=== PATIENT | female | born 1985 | race Caucasian/White ===

== ENCOUNTER 2018-06-11 14:01 | Emergency (ER) | payer OTHER ==
[2018-06-11 14:09] VITALS: BP 129/85
[2018-06-11] MEDS ORDERED: TETANUS/DIPHTHERIA/PERTUSSIS 0.5 ML SYRINGE IM ONE (14:44)
--- NOTE | 2018-06-11 14:46 | ED Physician Documentation ---
PD HPI LOWER EXT INJURY - Stated complaint Stated Complaint: R LEG INJ - Chief complaint Chief Complaint: Ext Problem - History obtained from History obtained from: Patient - History of Present Illness PD HPI LOW EXT INJURY LOCATION: Other (She fell 3 days ago while skating at a skate park and scraped her right thigh and has a large area of swelling and moderate pain there although declines prescription pain medication and reinjured in another fall today. 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 : None HEENT: Chronic vision loss Psych: Depression Musculoskeletal: None Derm: None - Past Surgical History Past Surgical History: No - Present Medications Home Medications: Ambulatory Orders Medication Instructions Recorded Confirmed No Known Home Medications [No 06/08/17 06/08/17 Known Home Medications] - Allergies Allergies/Adverse Reactions: Allergies Allergy/AdvReac Type Severity Reaction Status Date / Time iron dextran complex Allergy breathing Verified 06/11/18 14:09 difficulty - Social History Does the pt smoke?: No Smoking Status: Never smoker Does the pt drink ETOH?: Yes Does the pt have substance abuse?: No Substance Use and Type: Marijuana - Immunizations Immunizations are current?: Yes - POLST Patient has POLST: No PD ED PE NORMAL - Vitals Vital signs reviewed: Yes - General General: Alert and oriented X 3, No acute distress - Neck Neck: Supple, no meningeal sign, No bony TTP - Neuro Neuro: Alert and oriented X 3, Normal speech - Psych Psych: Normal mood, Normal affect PD ED PE EXPANDED - Extremities JUANITA LE visual: 1 - bruising (There is a large swollen contusion with overlying shallow abrasion and ecchymosis. There is tenderness but not above or below the injury and she walks albeit with fairly limping gait.) Results - Vitals Vitals: Vital Signs - 24 hr 06/11/18 14:06 Temperature 36.5 C Heart Rate 81 Respiratory 16 Rate Blood Pressure 129/85 H O2 Saturation 99 Oxygen O2 Source Room air - Rads (name of study) R femur XR Radiology: EMP read contemporaneously (STS no frx) PD MEDICAL DECISION MAKING - Sepsis Event Vital Signs: Vital Signs - 24 hr 06/11/18 14:06 Temperature 36.5 C Heart Rate 81 Respiratory 16 Rate Blood Pressure 129/85 H O2 Saturation 99 Oxygen O2 Source Room air Departure - Departure Disposition: 01 Home, Self Care Clinical Impression: Contusion of right leg Qualifiers: Encounter type: initial encounter Qualified Code(s): S80.11XA - Contusion of right lower leg, initial encounter Abrasion of right leg Qualifiers: Encounter type: initial encounter Qualified Code(s): S80.811A - Abrasion, right lower leg, initial encounter Condition: Good Record reviewed to determine appropriate education?: Yes Instructions: ED Abrasion, ED Contusion Lower Ext Comments: Your blood pressure was elevated today on check into the emergency department. This does not mean that you have hypertension, it is a common phenomenon to come to the emergency department and have elevated blood pressure. I recommend that you see your primary care physician within the week to have it rechecked when you are feeling better. Discharge Date/Time: 06/11/18 15:14
--- NOTE | 2018-06-11 15:18 | XRAY Report ---
Reason: RLE inj Procedure Date: 06/11/2018 Accession Number: [id number] / [id number] Procedure: XR - Femur 2V RT CPT Code: FULL RESULT: EXAM: RIGHT FEMUR RADIOGRAPHY EXAM DATE: 06/11/2018 02:59 PM. CLINICAL HISTORY: Right hip/proximal femur pain and swelling after falling while roller skating twice in 2 days. COMPARISON: None. TECHNIQUE: 2 views. FINDINGS: Bones: Normal. No fracture or bone lesion. Joints: The visualized hip and knee joints are normal. No effusions. Soft Tissues: There is fat stranding in the subcutaneous tissue lateral to the hip and proximal femur. IMPRESSION: 1. No acute osseous abnormality. 2. Edema or contusion in the subcutaneous fat lateral to the right hip and proximal femur. RADIA
== END 2018-06-11 15:14 | disposition home or self-care (01) ==
LOC: ED 14:01
DX: S80.11XA Contusion of right lower leg, initial encounter (principal); W10.2XXA Fall (on)(from) incline, initial encounter; V00.128A Other non-in-line roller-skating accident, initial encounter; Y93.69 Activity, other involving other sports and athletics played as a team or group; Y92.830 Public park as the place of occurrence of the external cause; R03.0 Elevated blood-pressure reading, without diagnosis of hypertension
CPT/HCPCS: 90471; 99282; 99283

== ENCOUNTER 2019-08-25 18:47 | Emergency (ER) | payer OTHER ==
[2019-08-25] MEDS ORDERED: KETOROLAC 60 MG/2 ML VIAL IM STA (20:11)
--- NOTE | 2019-08-25 20:13 | ED Physician Documentation ---
PD HPI BACK PAIN - Stated complaint Stated Complaint: RT UPPER BACK PX - Chief complaint Chief Complaint: Back Pain - History obtained from History obtained from: Patient - History of Present Illness Timing - onset: Other (Participates in [employer]. About a week ago she had several falls of practice. No specific pain then but woke up with severe left upper back pain the next day. She was seen in the clinic and given Toradol, this was helpful, and given a prescription for muscle relaxer and pain medication, she did not fill either. The pain is still there. There is no associated chest pain or trouble breathing. No fevers. Does not radiate except uppercase the neck a little bit. 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 : None HEENT: Chronic vision loss Psych: Depression Musculoskeletal: None Derm: None - Past Surgical History Past Surgical History: No - Present Medications Home Medications: Ambulatory Orders Medication Instructions Recorded Confirmed Cyclobenzaprine [Flexeril] 10 mg PO TID PRN #20 tablet 08/25/19 Hydrocodone/Acetaminophen 1 - 2 each PO Q6H PRN #14 tablet 08/25/19 [Hydrocodon-Acetaminophen 5-325] Ibuprofen [Motrin] 800 mg PO Q8H PRN #30 tablet 08/25/19 Lidocaine Patch 5% [Lidoderm Patch] 1 patch TOP DAILY PRN #10 patch 08/25/19 Physical Therapy 1 unit TD ONCE #1 08/25/19 - Allergies Allergies/Adverse Reactions: Allergies Allergy/AdvReac Type Severity Reaction Status Date / Time iron dextran complex Allergy breathing Verified 08/25/19 18:54 difficulty - Social History Does the pt smoke?: No Smoking Status: Never smoker Does the pt drink ETOH?: Yes Does the pt have substance abuse?: No - Immunizations Immunizations are current?: Yes - POLST Patient has POLST: No PD ED PE NORMAL - Vitals Vital signs reviewed: Yes - General General: Alert and oriented X 3, No acute distress - HEENT HEENT: PERRL, EOMI - Neck Neck: Supple, no meningeal sign, No bony TTP - Cardiac Cardiac: RRR, No murmur - Respiratory Respiratory: No respiratory distress, Clear bilaterally - Abdomen Abdomen: Non tender - Extremities Extremities: Other (Tender in the midline of the mid thoracic spine, hurts to move the right arm across the chest. Lungs are clear.) - Neuro Neuro: Alert and oriented X 3, Normal speech Results - Vitals Vitals: Vital Signs - 24 hr 08/25/19 08/25/19 18:52 21:59 Temperature 36.4 C L 36.9 C Heart Rate 90 67 Respiratory 16 18 Rate Blood Pressure 133/80 H 125/85 H O2 Saturation 100 100 Oxygen O2 Source Room air - Rads (name of study) T spine XR Radiology: EMP read contemporaneously (normal) PD MEDICAL DECISION MAKING - ED course ED course: 34-year-old woman with upper back pain, seems like muscle spasm. Given the association with trauma and x-ray was done and negative. Got some relief with Toradol but needed more meds as well. The patient was counseled as to the diagnosis and need for follow-up. I counseled the patient with regard to signs and symptoms that would necessitate an urgent reevaluation in the emergency department. They understand they are welcome to return at any time if worse or if not improving as expected. This document was made in part using voice recognition software. While efforts are made to proofread this documents, sound alike and grammatical errors may occur. Departure - Departure Disposition: 01 Home, Self Care Clinical Impression: Back spasm Condition: Good Record reviewed to determine appropriate education?: Yes Instructions: ED Spasm Back No Trauma Prescriptions: Cyclobenzaprine [Flexeril] 10 mg PO TID PRN #20 tablet PRN Reason: Spasms Hydrocodone/Acetaminophen [Hydrocodon-Acetaminophen 5-325] 1 - 2 each PO Q6H PRN #14 tablet PRN Reason: pain Ibuprofen [Motrin] 800 mg PO Q8H PRN #30 tablet PRN Reason: PAIN &/OR FEVER Lidocaine Patch 5% [Lidoderm Patch] 1 patch TOP DAILY PRN #10 patch PRN Reason: pain Physical Therapy 1 unit TD ONCE #1 Comments: Call your doctor to arrange a follow-up appointment, make the next available appointment. In the interim, return anytime if worse or if new symptoms develop. Do not drink or drive while taking narcotic pain medication. Note that many narcotic pain relievers also contain Tylenol/acetaminophen. Please ensure that your total dose of acetaminophen from all sources does not exceed 3 g (3000 mg) per day. You may get constipated while on this medication. Take a stool softener such as Colace twice a day while you are on it. Also add an duty-[id number]-ewgcryb laxative such as senna or MiraLAX on any day that you do not have a bowel movement. If you received a narcotic pain medication or sedative while in the emergency department, do not drive for the next 24 hours. Discharge Date/Time: 08/25/19 22:10
[2019-08-25] MEDS ORDERED: HYDROcod/ACETAM 5/325 MG TABLET PO STA (21:28)
[2019-08-25] MEDS ORDERED: CYCLOBENZAPRINE 10 MG TABLET PO STA (21:28)
[2019-08-25] MEDS ORDERED: HYDROcod/ACET 5/325 Prepack 4 PO STA (21:53)
[2019-08-25] MEDS ORDERED: LIDOCAINE PATCH 5% TOP STA (21:53)
[2019-08-25 22:00] VITALS: BP 125/85
--- NOTE | 2019-08-25 22:06 | XRAY Report ---
Reason: upper back pain Procedure Date: 08/25/2019 Accession Number: [id number] / [id number] Procedure: XR - Thoracic Spine 2 View CPT Code: Final Report FULL RESULT: EXAM: THORACIC SPINE RADIOGRAPHY EXAM DATE: 08/25/2019 09:43 PM. CLINICAL HISTORY: Upper back pain. COMPARISON: None. TECHNIQUE: 3 views. FINDINGS: Alignment: Normal. No spondylolisthesis or scoliosis. Bones: No fractures or bone lesions. Disks: Normal. Disk heights are maintained. Soft Tissues: Normal. The visualized lungs and cardiomediastinal silhouette are normal. IMPRESSION: Normal thoracic spine radiography. RADIA
== END 2019-08-25 22:10 | disposition home or self-care (01) ==
LOC: ED 18:47
DX: M62.830 Muscle spasm of back (principal); M54.6 Pain in thoracic spine; Z91.81 History of falling
CPT/HCPCS: 72070; 96372; 99283; 99284; A9270

== ENCOUNTER 2020-10-06 07:52 | Day surgery (SDC) | payer OTHER ==
[~2020-10-06 07:52] MED LIST: ACETAMINOPHEN 1,000 MG/100 ML 0 ML IV ONE; ACETAMINOPHEN 1,000 MG/100 ML 100 ML IV ONE
[2020-10-06] MEDS ORDERED: LACTATED RINGERS 1,000 ML IV ONE ×2 (08:14→09:53)
[2020-10-06] MEDS ORDERED: DEXAMETHASONE 4 MG/ML VIAL ONE (08:18)
[2020-10-06] MEDS ORDERED: KETOROLAC 30 MG/ML VIAL ONE (08:18)
[2020-10-06] MEDS ORDERED: ONDANSETRON 4 MG/2 ML VIAL ONE ×2 (08:18→10:10)
[2020-10-06] MEDS ORDERED: PROPOFOL 200 MG/20 ML VIAL IVP ONE (08:18)
[2020-10-06] MEDS ORDERED: LIDOCAINE-MPF 2% 5 ML VIAL ONE (08:18)
[2020-10-06 08:30] LABS: HCG UR QUAL NEGATIVE
[2020-10-06] MEDS ORDERED: LIDOCAINE 2%-EPI 1:100000 20 ML MDV ONE (08:47)
--- NOTE | 2020-10-06 08:50 | ANESTHESIA ---
Pre-Anesthesia VS, & Labs - Diagnosis menorrhagea - Procedure novasure/ablation Vital Signs: Temp Pulse Resp BP Pulse Ox 36.6 C 78 16 117/86 H 100 10/06/20 08:09 10/06/20 08:09 10/06/20 08:09 10/06/20 08:09 10/06/20 08:09 Height: 5 ft Weight (kg): 75.5 kg Body Mass Index: 32.5 BMI Classification: Obese - NPO >8 hours - Is Patient ?: No Home Medications and Allergies Home Medications: Ambulatory Orders diphenhydrAMINE [Benadryl] 25 mg PO Q4-6H 09/30/20 diphenhydrAMINE [Benadryl] 25 mg PO Q4-6H 09/30/20 Allergies/Adverse Reactions: Allergies Allergy/AdvReac Type Severity Reaction Status Date / Time iron dextran complex Allergy breathing Verified 09/30/20 12:45 difficulty nickel Allergy Rash Verified 09/30/20 12:45 Anes History & Medical History - Anesthetic History Anesthesia Complications: reports: No previous complications Family history of Anesthesia Complications: Denies Family history of Malignant Hyperthermia: Denies - Medical History Cardiovascular: reports: None Pulmonary: reports: None Gastrointestinal: reports: None Urinary: reports: None Neuro: reports: None Musculoskeletal: reports: None Endocrine/Autoimmune: reports: None Blood Disorders: reports: Anemia Skin: reports: None Smoking Status: Never smoker - Surgical History Gynecologic: Dilation and currettage Exam General: Alert, Oriented x3, Cooperative, No acute distress Dental: WNL Mouth Openin Fingerbreadth Mallampati classification: II Thyromental Distance: 4-6 cm Respiratory: Lungs clear, Normal breath sounds, No respiratory distress, No accessory muscle use Cardiovascular: Regular rate, Normal S1, Normal S2, No murmurs Mental/Cognitive Status: Alert/Oriented X3, Normal for patient Cognitive Status: Within normal limits Plan Anesthesia Type: General Consent for Procedure(s) Verified and Reviewed: Yes Code Status: Attempt Resuscitation ASA classification: 2-Mild systemic disease Is this case an emergency?: No
[2020-10-06] MEDS ORDERED: LIDOCAINE 1%-EPI 1:100000 20 ML MDV SUBQ ONE ×2 (08:52→09:26)
[2020-10-06] MEDS ORDERED: fentaNYL 100 MCG/2 ML VIAL ONE (09:00)
[2020-10-06] MEDS ORDERED: MIDAZOLAM 2 MG/2 ML VIAL ONE (09:00)
--- NOTE | 2020-10-06 09:07 | OPERATIVE REPORT ---
Operative Report - General Planned Procedure: Diagnostic hysteroscopy, dilation and curettage, endometrial ablation Pre-Op Diagnosis: Heavy menstrual bleeding Procedure Performed: Diagnostic hysteroscopy, Dilation and curettage, Novasure endometrial ablation Post Op Diagnosis: Heavy menstrual bleeding - Procedure Note Primary Surgeon: Luly Anesthesia Provider: Kellen Anesthesia Technique: General LMA, Local Pathology: Endometrial curettings IV Fluids (mL): 400 (Lactated Ringers) Estimated Blood Loss (mL): 5 Urine Output (mL): 150 Indications: 35 year old female using 's vasectomy for contraception, with heavy menstrual bleeding leading to anemia requiring IV iron infusions. She declined hormonal contraceptive medication or other medical therapy for management, and desired surgical management with endometrial ablation. The patient was counseled and consented for the procedure. Findings: Exam under anesthesia: Uterus approximately 10 week sized, normal contour. No adnexal masses. Hysteroscopy: Uterus sounded to 10cm, uterine length 6cm, uterine width 5cm. Uterine cavity with polypoid tissue limiting visualization of right tubal ostium. Left ostium normal. Sharp curettage performed to remove polypoid endometrium, followed by repeat hysteroscopy which showed normal right tubal ostium. Post-ablation hysteroscopy with charring with spared thin band at fundus and sparing at 0300 to 0600 of lower uterine segment endometrium. Total ablation time: 0:53, power 165 barrett Complications: None - Other Other Information/Narrative: OPERATIVE NOTE: The patient was counseled and consented for the procedure. She was taken to the operating room where general LMA anesthesia was obtained without complication. A surgical time-out was performed. The patient was prepped and draped in the usual sterile fashion in yellow-fin stirrups. The bladder was drained with a straight catheter. A bivalve speculum was placed in the vagina. The anterior lip of the cervix was grasped with a single toothed tenaculum. A local paracervical block using 10ml of 2 % lidocaine with epinephrine was placed at 2, 4, 8, and 10 o'clock positions of the cervix. The uterus was sounded to 10cm. The cervix was dilated to #8 Sindy dilator. The diagnostic hysteroscope was inserted and the uterine cavity was noted to have polypoid tissue limiting visualization of right tubal ostium, normal left tubal ostium. The hysteroscope was removed and sharp curettage was performed with a medium sized curette, and the tissue sent for pathology. Repeat hysteroscopy after curettage with visualized normal right tubal ostium. The cervix and uterine measurements were obtained. The Novasure device was inserted and the uterine width was obtained using automobile sales representative recommended maneuvers. Endometrial ablation was performed without complication. The Novasure device was removed and the diagnostic hysteroscope was inserted, notable for charring with spared thin band at fundus and spared charring at 0300 to 0600 of lower uterine segment endometrium. The hysteroscope was removed. The tenaculum was removed from the cervix and the tenaculum sites were hemostatic with pressure. The speculum was removed from the vagina. All instruments were removed from the vagina. The patient tolerated the procedure well. She was awakened from anesthesia without complication and transferred to PACU in stable condition.
[2020-10-06] MEDS ORDERED: METOCLOPRAMIDE 10 MG/2 ML VIAL IVP PRN (09:14)
[2020-10-06] MEDS ORDERED: ONDANSETRON 4 MG/2 ML VIAL IVP PRN ×2 (09:14→10:10)
[2020-10-06] MEDS ORDERED: MORPHINE 2 MG/ML CARPUJECT IVP PRN (09:14)
[2020-10-06] MEDS ORDERED: fentaNYL 100 MCG/2 ML VIAL IVP PRN (09:14)
[2020-10-06] MEDS ORDERED: ATROPINE ABBOJECT 1 MG/10 ML SYRINGE IVP PRN (09:14)
[2020-10-06] MEDS ORDERED: HYDROmorphone 0.5 MG/0.5 ML SYRINGE IVP PRN (09:14)
[2020-10-06] MEDS ORDERED: ePHEDrine 50 MG/ML VIAL IVP PRN (09:14)
[2020-10-06] MEDS ORDERED: NALOXONE 0.4 MG/ML VIAL IVP PRN (09:14)
[2020-10-06] MEDS ORDERED: LACTATED RINGERS 1,000 ML IV SCH (10:00)
[2020-10-06] MEDS ORDERED: MORPHINE 10 MG/ML VIAL IVP STA (10:10)
[2020-10-06] MEDS ORDERED: oxyCODONE 5 MG TABLET PO PRN (10:10)
[2020-10-06] MEDS ORDERED: diphenhydrAMINE 25 MG CAPSULE PO PRN (10:10)
[2020-10-06] MEDS ORDERED: HYDROmorphone 0.5 MG/0.5 ML SYRINGE ONE (10:11)
[2020-10-06] MEDS ORDERED: oxyCODONE 5 MG TABLET ONE (10:47)
[2020-10-06 11:12] VITALS: BP 120/73
--- NOTE | 2020-10-06 14:18 | ANESTHESIA POST OP EVALUATION ---
Anesthesia Post Eval - Post Anesthesia Eval Vitals: Last Vital Signs Temp 36.3 C L 10/06/20 11:11 Pulse 79 10/06/20 11:11 Resp 16 10/06/20 11:11 BP 120/73 10/06/20 11:11 Pulse Ox 98 10/06/20 11:11 CV Function Including HR & BP: positive: Stable Pain Control: positive: Satisfactory Nausea & Vomiting: positive: Negative Mental Status: positive: Baseline Respiratory Status: Airway Patent Hydration Status: Satisfactory Anesthesia Complications: positive: None
== END 2020-10-06 07:53 | disposition home or self-care (01) ==
LOC: SDS 07:52
PROVIDERS: ATTEND Obstetrics & Gynecology
PROC: 0UDB7ZX Extraction of Endometrium, Via Natural or Artificial Opening, Diagnostic (ICD-10-PCS; 2020-10-06)
PROC: 0U5B8ZZ Destruction of Endometrium, Via Natural or Artificial Opening Endoscopic (ICD-10-PCS; principal; 2020-10-06 09:00)
DX: N92.0 Excessive and frequent menstruation with regular cycle (principal); D64.9 Anemia, unspecified; F32.9 Major depressive disorder, single episode, unspecified; E66.9 Obesity, unspecified; Z68.32 Body mass index [BMI] 32.0-32.9, adult; Z72.89 Other problems related to lifestyle
CPT/HCPCS: 81025

== ENCOUNTER 2020-12-21 22:47 | Emergency (ER) | payer OTHER ==
[2020-12-21] MEDS ORDERED: HYDROCORTISONE 1% OINTMENT 28 GM TUBE TOP STA (23:25)
--- NOTE | 2020-12-21 23:28 | ED Physician Documentation ---
History of Present Illness - Stated complaint Stated Complaint: L LEG REDNESS - Chief complaint Chief Complaint: Ext Problem - History obtained from History obtained from: Patient - Additonal information Additional information: 35-year-old woman with history of factor VIII elevation and bleeding anemia presents with left distal inner leg swelling, erythema, and constant stinging nonradiating pain gradual in onset over the past hour or so. Patient came in because she called an MD hotline and was told to come in to rule out blood clots. She has never had DVT in the past. Denies injury. She did hike in the [employer] yesterday and is unsure whether she was bit by anything or had any plant allergen exposure. Review of Systems Constitutional: denies: Fever Musculoskeletal: reports: Extremity swelling, Other (BL calf pain) Neurologic: reports: Other (+tingling pain). 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: Dilation and currettage - Present Medications Home Medications: Ambulatory Orders Medication Instructions Recorded Confirmed Ibuprofen [Motrin] 800 mg PO Q8H PRN #30 tablet 08/25/19 - Allergies Allergies/Adverse Reactions: Allergies Allergy/AdvReac Type Severity Reaction Status Date / Time iron dextran complex Allergy breathing Verified 12/21/20 22:59 difficulty nickel Allergy Rash Verified 12/21/20 22:59 - Social History Does the pt smoke?: No Smoking Status: Never smoker Does the pt drink ETOH?: Yes Does the pt have substance abuse?: No - Immunizations Immunizations are current?: Yes - POLST Patient has POLST: No PD ED PE NORMAL - Vitals Vital signs reviewed: Yes - General General: Alert and oriented X 3, No acute distress, Well developed/nourished - HEENT HEENT: Atraumatic, PERRL, EOMI - Extremities Extremities: No calf tenderness / cord, Other (2+ BL DP/PT pulses. irregular area of erythema to L lower calf just proximal to ankle without notable swelling. discomfort to palpation.) Results - Vitals Vitals: Vital Signs - 24 hr 12/21/20 12/21/20 22:49 23:06 Temperature 36.6 C 36.6 C Heart Rate 69 69 Respiratory 18 18 Rate Blood Pressure 130/92 H 130/92 H O2 Saturation 99 99 Oxygen O2 Source Room air PD MEDICAL DECISION MAKING - ED course ED course: 35yF with hx clotting disorder p/w L calf erythema and swelling, found to be negative for dvt on u/s. She did go hiking yesterday and I have a higher suspicion for a mild contact dermatitis however strict return precautions were given and pt was counseled to f/u with her primary doctor for possible repeat u/s in 2 weeks if she does not have resolution. Departure - Departure Disposition: 01 Home, Self Care Clinical Impression: Pain in extremity, Redness of skin Condition: Good Instructions: Contact Dermatitis Comments: You were seen for some redness and swelling on your left leg. It looks like this is likely a contact dermatitis type can be treated with [id number]-[id number] hydrocortisone. Your ultrasound study was negative for DVT, meaning that you do not appear to have a blood clot in your leg. A repeat ultrasound should be performed in 2 weeks if your doctor has a high suspicion for blood clots and if your symptoms have not resolved at that time. Return to the emergency department if you have any new or worsening symptoms or other concerns. Follow- up with your doctor this week.
[2020-12-21] MEDS ORDERED: HYDROCORTISONE 1% OINTMENT 28 GM TUBE TOP ONE (23:45)
[2020-12-21] MEDS ORDERED: HYDROCORTISONE 1% OINTMENT 28 GM TUBE TOP SCH (23:45)
[2020-12-21] MEDS ORDERED: HYDROCORTISONE 1% CREAM 28 GM TUBE TOP STA (23:46)
[2020-12-21] MEDS ORDERED: HYDROCORTISONE 1% CREAM 28 GM TUBE ONE (23:54)
[2020-12-22 00:26] VITALS: BP 118/74
--- NOTE | 2020-12-22 08:56 | Ultrasound Report ---
PROCEDURE: Duplex Ext Veins Left INDICATIONS: hx clotting disorder, with L leg swelling, redness TECHNIQUE: Real-time imaging, as well as color and pulse Doppler interrogation, were performed of the lower extr emity deep veins from the inguinal ligament to the popliteal fossa. COMPARISON: None. FINDINGS: The deep veins are normally compressible, and free of intraluminal thrombus. Color and pu lse Doppler demonstrate normal phasic intraluminal flow. There is normal augmentation response to di stal compression maneuver. IMPRESSION: No evidence of deep vein thrombosis involving the right lower extremity. Reviewed by: Gwendolyn Sloan MD, PhD on 12/22/2020 8:54 AM PDT Approved by: Gwendolyn Sloan MD, PhD on 12/22/2020 8:54 AM PDT Station ID: [id number]
== END 2020-12-22 00:25 | disposition home or self-care (01) ==
LOC: ED 22:47
DX: L53.9 Erythematous condition, unspecified (principal); M79.662 Pain in left lower leg; D68.2 Hereditary deficiency of other clotting factors; D50.0 Iron deficiency anemia secondary to blood loss (chronic)
CPT/HCPCS: 93971; 99283; 99284; A9270

== ENCOUNTER 2021-08-09 09:07 | Emergency (ER) | payer OTHER ==
[2021-08-09 09:18] VITALS: BP 128/74
[2021-08-09] MEDS ORDERED: LIDOCAINE VISCOUS 2% 15 ML UDC MM STA (09:45)
[2021-08-09] MEDS ORDERED: SUCRALFATE 1 GM/10 ML UDC PO STA (09:45)
--- NOTE | 2021-08-09 09:47 | ED Physician Documentation ---
History of Present Illness - Stated complaint Stated Complaint: THROAT PX - Chief complaint Chief Complaint: Heent - History obtained from History obtained from: Patient - History of Present Illness Timing: Last night Pain level max: 7 Pain level now: 5 - Additonal information Additional information: 36-year-old female presents to the emergency department with left-sided throat pain. She states that this started last night after coughing. She states she has been sick for about a week with rhinorrhea, congestion and cough. States it is worse with swallowing, better with rest. Taken Motrin and Tylenol without relief. No vomiting. No abdominal pain. Denies any possibility of . No fevers. Has had her Covid vaccinations. Review of Systems Constitutional: denies: Fever, Chills Cardiac: denies: Chest pain / pressure Respiratory: denies: Cough GI: denies: Vomiting, Diarrhea PD PAST MEDICAL HISTORY - Past Medical History Cardiovascular: None Respiratory: None Neuro: None Endocrine/Autoimmune: None GI: None MANAGER INTEL: None : None HEENT: Chronic vision loss Psych: Post traumatic stress disorder Musculoskeletal: None Derm: None - Past Surgical History Past Surgical History: No /MANAGER INTEL: Dilation and currettage - Present Medications Home Medications: Ambulatory Orders Medication Instructions Recorded Confirmed Ibuprofen [Motrin] 800 mg PO Q8H PRN #30 tablet 08/25/19 HYDROcod/ACETAM 5/325 [[place] 5/325] 1 - 2 ea PO Q6H PRN #14 tablet 08/09/21 Ibuprofen [Motrin] 800 mg PO Q8H PRN #30 tablet 08/09/21 - Allergies Allergies/Adverse Reactions: Allergies Allergy/AdvReac Type Severity Reaction Status Date / Time iron dextran complex Allergy breathing Verified 08/09/21 09:18 difficulty nickel Allergy Rash Verified 08/09/21 09:18 - Social History Does the pt smoke?: No Smoking Status: Never smoker Does the pt drink ETOH?: Yes Does the pt have substance abuse?: No - Immunizations Immunizations are current?: Yes - POLST Patient has POLST: No PD ED PE NORMAL - Vitals Vital signs reviewed: Yes - General General: Alert and oriented X 3, No acute distress - HEENT HEENT: PERRL, Ears normal, Moist mucous membranes, Pharynx benign (No tonsillar exudates. Uvula midline. Normal phonation. No trismus) - Neck Neck: Supple, no meningeal sign (Full range of motion.), Other (Shotty anterior lymphadenopathy. No visible or palpable swelling on the neck.) - Cardiac Cardiac: RRR, Strong equal pulses - Respiratory Respiratory: No respiratory distress, Clear bilaterally - Abdomen Abdomen: Soft, Non tender, Non distended - Derm Derm: Warm and dry, No rash - Neuro Neuro: Alert and oriented X 3, software performance engineer 2-12 intact, No motor deficit, No sensory deficit, Normal speech Results - Vitals Vitals: Vital Signs - 24 hr 08/09/21 09:12 Temperature 36.5 C Heart Rate 69 Respiratory 16 Rate Blood Pressure 128/74 O2 Saturation 99 Oxygen O2 Source Room air PD MEDICAL DECISION MAKING - ED course Complexity details: re-evaluated patient, considered differential, d/w patient ED course: 36-year-old female with increased sore throat after coughing. Normal oropharyngeal exam. Normal phonation. No hot potato voice. Patient is tolerating her secretions and oral liquids without difficulty. She does have pain with swallowing. The pain improved with lidocaine and Carafate. We will place her on pain medication for home, suspect that this is pharyngitis causing her pain. No evidence of abscess. We did discuss a CT scan of the neck, but she declines at that this time. I think that is reasonable and if she fails to improve or worsens, would consider CT at that time. Patient counseled regarding signs and symptoms for which I believe and urgent re-evaluation would be necessary. Patient with good understanding of and agreement to plan and is comfortable going home at this time This document was made in part using voice recognition software. While efforts are made to proofread this document, sound alike and grammatical errors may occur. Departure - Departure Disposition: 01 Home, Self Care Clinical Impression: Throat pain in adult, Viral URI Condition: Good Instructions: ED Pharyngitis Viral, ED URI Viral Follow-Up: HERNAN PAGE DO [Primary Care Provider] - Within 1 week Prescriptions: Ibuprofen [Motrin] 800 mg PO Q8H PRN #30 tablet PRN Reason: PAIN &/OR FEVER HYDROcod/ACETAM 5/325 [[place] 5/325] 1 - 2 ea PO Q6H PRN #14 tablet PRN Reason: Pain Comments: Your prescriptions were sent to [facility] in [place]. Please follow-up with your doctor for further care. Return if you worsen. Cool liquids will help your pain as well. I am prescribing a short course of narcotic pain medication for you. These are potentially dangerous and addictive medications that should be used carefully. These medications may constipate you. Take an ybhc-sqp-mvracvu stool softener (docusate) twice daily with plenty of water while taking these medications. If you go 24 hours without a bowel movement, take ixjd-ftq-rwtzidx miralax, per package instructions. Do not drink or drive while taking these medications. If you received narcotic or sedating medications while in the emergency department, do not drive for 24 hours. Store this medication in a safe, secure place and out of reach of children. It is a violation of federal law to give or sell this medication to another person or to use in a manner other than prescribed. The ED will not refill narcotic prescriptions, including prescriptions lost or stolen. To dispose of unwanted medications: 1. [facility] at [address] in [place] has a medication drop box. They accept prescription medications (in p ill form) Tuesday through Tuesday 9:00 a.m. to 5:00 p.m. 2. The [facility] accepts prescription medications (in pill form only) for disposal year round. Call for more information. 3. Contact the [facility] for the next [facility] sponsored prescription drug collection event. , [phone], or [phone]; Discharge Date/Time: 08/09/21 10:22
[2021-08-09] MEDS ORDERED: IBUPROFEN 800 MG TABLET PO STA (10:14)
== END 2021-08-09 10:22 | disposition home or self-care (01) ==
LOC: ED 09:07
DX: J06.9 Acute upper respiratory infection, unspecified (principal)
CPT/HCPCS: 99282; A9270

== ENCOUNTER 2021-11-24 16:18 | Emergency (ER) | payer OTHER ==
[2021-11-24 16:24] VITALS: BP 123/85
--- NOTE | 2021-11-24 16:48 | ED Physician Documentation ---
History of Present Illness - Stated complaint Stated Complaint: R HAND INJURY - Chief complaint Chief Complaint: Trauma Ext - History obtained from History obtained from: Patient - History of Present Illness Timing: Last night Pain level max: 6 Pain level now: 4 - Additonal information Additional information: Patient is a 36-year-old female, right-handed, she accidentally hyperextended her right Middle finger last night when her dog was greeting her. Has pain and swelling today. Worse with movement, better with rest. 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 : None HEENT: Chronic vision loss Psych: Post traumatic stress disorder Musculoskeletal: None Derm: None - Past Surgical History Past Surgical History: No /ARCHITECTURE INTERNSHIP: Dilation and currettage - Present Medications Home Medications: Ambulatory Orders Medication Instructions Recorded Confirmed Ibuprofen [Motrin] 800 mg PO Q8H PRN #30 tablet 08/25/19 HYDROcod/ACETAM 5/325 [[place] 5/325] 1 - 2 ea PO Q6H PRN #14 tablet 08/09/21 Ibuprofen [Motrin] 800 mg PO Q8H PRN #30 tablet 08/09/21 - Allergies Allergies/Adverse Reactions: Allergies Allergy/AdvReac Type Severity Reaction Status Date / Time iron dextran complex Allergy breathing Verified 11/24/21 16:25 difficulty nickel Allergy Rash Verified 11/24/21 16:25 - Social History Does the pt smoke?: No Smoking Status: Never smoker Does the pt drink ETOH?: Yes Does the pt have substance abuse?: No - Immunizations Immunizations are current?: Yes - POLST Patient has POLST: No PD ED PE NORMAL - Vitals Vital signs reviewed: Yes - General General: Alert and oriented X 3, No acute distress - HEENT HEENT: Moist mucous membranes - Neck Neck: Supple, no meningeal sign - Derm Derm: Warm and dry - Extremities Extremities: Other (Mild swelling. Tenderness to palpation over the middle finger of the right hand. Full range of motion. There is pain with movement however. Neurovascularly intact. Otherwise normal examination of the hand, wrist and forearm.) - Neuro Neuro: Alert and oriented X 3 Results - Vitals Vitals: Vital Signs - 24 hr 11/24/21 16:21 Temperature 36.2 C L Heart Rate 70 Respiratory 16 Rate Blood Pressure 123/85 H O2 Saturation 100 Oxygen O2 Source Room air - Rads (name of study) Right finger x-ray Radiology: Final report received, EMP read contemporaneously, See rad report (No acute abnormality) PD MEDICAL DECISION MAKING - ED course Complexity details: reviewed results, re-evaluated patient, considered differential, d/w patient ED course: 36-year-old female with a right finger sprain. No acute findings on x-ray. Placed in a foam finger splint and antwan taped. We will utilize Motrin and Tylenol as needed for pain. Neurovascular intact. No evidence of tendon rupture. Able to fully extend and flex the finger. Patient counseled regarding signs and symptoms for which I believe and urgent re-evaluation would be necessary. Patient with good understanding of and agreement to plan and is comfortable going home at this time This document was made in part using voice recognition software. While efforts are made to proofread this document, sound alike and grammatical errors may occur. Departure - Departure Disposition: 01 Home, Self Care Clinical Impression: Sprain, finger Qualifiers: Encounter type: initial encounter Finger: middle finger Sprain of finger site: unspecified site Laterality: right Qualified Code(s): S63.612A - Unspecified sprain of right middle finger, initial encounter Condition: Good Instructions: ED Sprain Finger Follow-Up: HERNAN PAGE DO [Primary Care Provider] - Comments: There are no fractures on your x-ray today. Please follow-up with your doctor as needed for further care. Wear the finger splint as needed for comfort. You can use Motrin or Tylenol as needed for pain. Return if you worsen. If you are still having pain in 1 week, I recommend you be reevaluated by your doctor.
--- NOTE | 2021-11-24 17:10 | XRAY Report ---
PROCEDURE: Finger(s) RT INDICATIONS: RIGHT 3RD DIGIT PAIN TECHNIQUE: PA view of the hand and 2 views of the middle finger acquired. COMPARISON: None. FINDINGS: Bones: No acute fractures or dislocations. No suspicious bony lesions. Soft tissues: No suspicious soft tissue calcifications. Mild soft tissue edema is seen in the middl e finger. IMPRESSION: No acute osseous abnormality. If there is clinical concern or persistent symptoms, additional imaging such as repeat radiographs or advanced imaging (e.g. CT, MRI) may be helpful for further evaluation. Reviewed by: Jorge Arthur MD on 11/24/2021 5:09 PM PST Approved by: Jorge Arthur MD on 11/24/2021 5:09 PM PST Station ID: [id number]
== END 2021-11-24 17:44 | disposition home or self-care (01) ==
LOC: ED 16:18
DX: S63.612A Unspecified sprain of right middle finger, initial encounter (principal); X58.XXXA Exposure to other specified factors, initial encounter; Y93.83 Activity, rough housing and horseplay
CPT/HCPCS: 99282; 99283

== ENCOUNTER 2022-02-15 04:22 | Emergency (ER) | payer OTHER ==
--- NOTE | 2022-02-15 04:26 | ED Physician Documentation ---
PD HPI HEADACHE - Stated complaint Stated Complaint: HEADACHE - History obtained from History obtained from: Patient - History of Present Illness Timing - onset: How many weeks ago (3) Timing - details: Still present Pain level now: 8 (headache, myalgias) Worst headache ever?: No: Worst headache ever? Location: Front, Right, Left, Other (bilateral frontoparietal) Quality: Throbbing, Aching Associated symptoms: Fever, Nausea. No: Stiff neck, Vomiting Improved by: Nothing Worsened by: Other Similar symptoms before: Has not had sx before Recently seen: Not recently seen - Additional information Additional information: patient says that approximately 3 weeks ago she had generalized headache, generalized myalgias, mild cough, fatigue. These symptoms were mild and so she did not seek medical attention and she felt they nearly resolved after approximately one week, although she does not feel the symptoms ever completely resolved. Tonight she developed fever, severe bifrontal headache, productive cough, and diarrhea. She is COVID vaccinated with booster. She has nausea but no vomiting. She had similar but milder symptoms all day and has been taking ibuprofen during the day with decreasing efficacy regarding symptom relief Review of Systems Constitutional: reports: Fever, Chills, Myalgias Eyes: denies: Decreased vision, Photophobia Ears: denies: Ear pain Throat: denies: Sore throat Cardiac: reports: Reviewed and negative Respiratory: reports: Cough. denies: Dyspnea GI: reports: Nausea. 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 COORDINATOR: Dilation and currettage - Present Medications Home Medications: Ambulatory Orders Medication Instructions Recorded Confirmed oxyCODONE [Roxicodone] 5 mg PO Q4-6H PRN #20 tablet 02/15/22 - Allergies Allergies/Adverse Reactions: Allergies Allergy/AdvReac Type Severity Reaction Status Date / Time iron dextran complex Allergy breathing Verified 02/15/22 04:33 difficulty nickel Allergy Rash Verified 02/15/22 04:33 - Social History Does the pt smoke?: No Smoking Status: Never smoker Does the pt drink ETOH?: Yes Does the pt have substance abuse?: No - Immunizations Immunizations are current?: Yes - POLST Patient has POLST: No PD ED PE NORMAL - Vitals Vital signs reviewed: Yes - General General: Alert and oriented X 3, Well developed/nourished, Other (appears uncomfortable, crying at times due to pain and aches) - HEENT HEENT: Moist mucous membranes, Pharynx benign - Neck Neck: Supple, no meningeal sign - Cardiac Cardiac: No murmur - Respiratory Respiratory: No respiratory distress, Clear bilaterally - Abdomen Abdomen: Soft, Non distended, Other (mild LUQ tednerness to palpation without guarding or rebound) - Back Back: Other (mild left CVA tenderness) - Derm Derm: Normal color, Warm and dry - Neuro Neuro: Alert and oriented X 3, line technician 2-12 intact, No motor deficit, No sensory deficit, Normal speech Eye Opening: Spontaneous Motor: Obeys Commands Verbal: Oriented GCS Score: 15 PD ED PE EXPANDED - Cardiac Cardiac: Tachy, Regular Rhythm Results - Vitals Vitals: Oxygen O2 Source Room air - Labs Labs: Laboratory Tests 02/15/22 02/15/22 02/15/22 04:40 05:00 05:14 WBC 8.6 RBC 4.14 L Hgb 12.2 Hct 35.7 L MCV 86.2 MCH 29.5 MCHC 34.2 RDW 13.9 Plt Count 268 MPV 10.2 Neut # (Auto) 7.1 H Lymph # (Auto) 0.8 L [place] # (Auto) 0.4 Eos # (Auto) 0.2 Baso # (Auto) 0.0 Absolute Nucleated RBC 0.00 Nucleated RBC % 0.0 Sodium Potassium Chloride Carbon Dioxide Anion Gap BUN Creatinine Estimated GFR (MDRD) Glucose Calcium Total Bilirubin AST ALT Alkaline Phosphatase Total Protein Albumin Globulin Albumin/Globulin Ratio Lipase Urine Color YELLOW Urine Clarity CLEAR Urine pH 6.0 Ur Specific [place] >=1.030 H Urine Protein NEGATIVE Urine Glucose (UA) NEGATIVE Urine Ketones NEGATIVE Urine Occult Blood MODERATE H Urine Nitrite NEGATIVE Urine Bilirubin NEGATIVE Urine Urobilinogen 0.2 (NORMAL) Ur Leukocyte Esterase NEGATIVE Urine RBC 0-5 Urine WBC 0-3 Ur Squamous Epith Cells FEW Squamous Urine Bacteria Rare Ur Microscopic Review INDICATED Urine Culture Comments NOT INDICATED Nasal Adenovirus (PCR) NOT DETECTED Nasal B. parapertussis DNA (PCR) NOT DETECTED Nasal Coronavir 229E PCR NOT DETECTED Nasal Coronavir HKU1 PCR NOT DETECTED Nasal Coronavir NL63 PCR NOT DETECTED Nasal Coronavir OC43 PCR NOT DETECTED Nasal Enterovir/Rhinovir PCR NOT DETECTED Nasal Influenza B PCR NOT DETECTED Nasal Influenza A PCR NOT DETECTED Nasal Parainfluen 1 PCR NOT DETECTED Nasal Parainfluen 2 PCR NOT DETECTED Nasal Parainfluen 3 PCR NOT DETECTED Nasal Parainfluen 4 PCR NOT DETECTED Nasal RSV (PCR) NOT DETECTED Nasal B.pertussis DNA PCR NOT DETECTED Nasal C.pneumoniae (PCR) NOT DETECTED Reinaldo Human Metapneumo PCR NOT DETECTED Nasal M.pneumoniae (PCR) NOT DETECTED Nasal SARS-CoV-2 (PCR) DETECTED A 02/15/22 05:14 WBC RBC Hgb Hct MCV MCH MCHC RDW Plt Count MPV Neut # (Auto) Lymph # (Auto) [place] # (Auto) Eos # (Auto) Baso # (Auto) Absolute Nucleated RBC Nucleated RBC % Sodium 137 Potassium 3.5 Chloride 103 Carbon Dioxide 24 Anion Gap 10.0 BUN 12 Creatinine 0.7 Estimated GFR (MDRD) 95 Glucose 111 H Calcium 9.1 Total Bilirubin 0.5 AST 18 ALT 16 Alkaline Phosphatase 56 Total Protein 8.1 Albumin 4.2 Globulin 3.9 Albumin/Globulin Ratio 1.1 Lipase 38 Urine Color Urine Clarity Urine pH Ur Specific [place] Urine Protein Urine Glucose (UA) Urine Ketones Urine Occult Blood Urine Nitrite Urine Bilirubin Urine Urobilinogen Ur Leukocyte Esterase Urine RBC Urine WBC Ur Squamous Epith Cells Urine Bacteria Ur Microscopic Review Urine Culture Comments Nasal Adenovirus (PCR) Nasal B. parapertussis DNA (PCR) Nasal Coronavir 229E PCR Nasal Coronavir HKU1 PCR Nasal Coronavir NL63 PCR Nasal Coronavir OC43 PCR Nasal Enterovir/Rhinovir PCR Nasal Influenza B PCR Nasal Influenza A PCR Nasal Parainfluen 1 PCR Nasal Parainfluen 2 PCR Nasal Parainfluen 3 PCR Nasal Parainfluen 4 PCR Nasal RSV (PCR) Nasal B.pertussis DNA PCR Nasal C.pneumoniae (PCR) Reinaldo Human Metapneumo PCR Nasal M.pneumoniae (PCR) Nasal SARS-CoV-2 (PCR) PD MEDICAL DECISION MAKING - ED course Complexity details: reviewed results, re-evaluated patient, considered differential, d/w patient ED course: Presents with symptoms consistent with viral syndrome and rapid PCR is positive for COVID. She is given tylenol early in ED stay and by the time of r eevaluation, she appears comfortable and reports feeling significantly better. Her fever is improved on reevaluation. CXR and blood tests are unremarkable, UA shows moderate blood but no other concerning findings (CVA tenderness is thus likely coincident as is the mild LUQ abdominal tenderness; she describes taking doses of ibuprofen as high as 1,000mg per dose, and has some nausea on ROS, so the LUQ tenderness and nausea could also represent mild gastritis due to NSAIDs. I advised her on proper dosing of ibuprofen and advised her to avoid NSAIDs for the next few days if tylenol and prescribed oxycodone adequately control symptoms). She has no dyspnea and pulse ox is 97-99% on room air, cxr is clear. Results discussed, return precautions reviewed. Advised regarding isolation precautions. I am prescribing a short course of short-acting opioid pain medication for this patient. 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 I have discussed that the opioids are for short term therapy only, and will not be refilled from the ED Departure - Departure Disposition: 01 Home, Self Care Clinical Impression: COVID-19 Condition: Good Instructions: ED Viral Syndrome Follow-Up: [facility] [Provider Group] Prescriptions: oxyCODONE [Roxicodone] 5 mg PO Q4-6H PRN #20 tablet PRN Reason: Headache Comments: You have tested POSITIVE for COVID-19. Follow the isolation guidelines on the CDC website: https://www.cdc.gov/coronavirus/2019-ncov/your-health/quarantine-isolation.html (you can get to the same website by doing a Google search for "cdc quarantine guidelines" (make sure it gets you to the website above). You can then find information on quarantine and isolation (you need to look at the isolation guidelines). A prescription for oxycodone has been electronically submitted to [facility] pharmacy in [place] (if you are going to hot die picker this medication, use the drive-through only; do not enter the store). This is a narcotic pain medication. You can take it as per label instructions for headache that does not respond adequately to tylenol. Do not drive for at least 6 hours after a dose of this medication. I am prescribing a short course of narcotic pain medication for you. These are potentially dangerous and addictive medications that should be used carefully. These medications may constipate you. Take an glhc-vat-wmxbdjg stool softener (docusate) twice daily with plenty of water while taking these medications. If you go 24 hours without a bowel movement, take nphn-qtp-efswpmj miralax, per package instructions. Do not drink or drive while taking these medications. If you received narcotic or sedating medications while in the emergency department, do not drive for 24 hours. Store this medication in a safe, secure place and out of reach of children. It is a violation of federal law to give or sell this medication to another person or to use in a manner other than prescribed. The ED will not refill narcotic prescriptions, including prescriptions lost or stolen. To dispose of unwanted medications: 1. [facility] at [address] in [place] has a medication drop box. They accept prescription medications (in pill form) Tuesday through Tuesday 9:00 a.m. to 5:00 p.m. 2. The [facility] Police Department accepts prescription medications (i n pill form only) for disposal year round. Call for more information. 3. Contact the [facility] for the next [facility] sponsored prescription drug collection event. , [phone], or [phone]; Discharge Date/Time: 02/15/22 06:43
[2022-02-15] MEDS ORDERED: ACETAMINOPHEN 325 MG TABLET PO STA (05:05)
[2022-02-15 05:12] LABS: BILIRUBIN,URINE NEGATIVE (NEGATIVE); GLUCOSE, URINE (UA) NEGATIVE (NEGATIVE); KETONES,URINE (UA) NEGATIVE (NEGATIVE); LEUKOCYTE ESTERASE, URINE NEGATIVE (NEGATIVE); NITRITE,URINE NEGATIVE (NEGATIVE); OCCULT BLOOD,URINE MODERATE (NEGATIVE); PROTEIN,URINE NEGATIVE (NEGATIVE); UROBILINOGEN,URINE 0.2 (NORMAL) E.U./dL (NORMAL)
[2022-02-15 05:13] LABS: CLARITY,URINE CLEAR (CLEAR)
[2022-02-15 05:22] LABS: BACTERIA,URINE Rare /HPF (None Seen); RBC,URINE 0-5 /HPF (0-5); SQUAMOUS EPITHELIAL CELL,UR FEW Squamous (<= Few); WBC,URINE 0-3 /HPF (0-5)
[2022-02-15 05:30] LABS: BASOPHILS % (AUTO) 0.5 %; EOSINOPHILS # (AUTO) 0.2 10^3/uL (0.0-0.7); EOSINOPHILS % (AUTO) 1.8 %; HCT - HEMATOCRIT 35.7 % (37.0-47.0); HGB - HEMOGLOBIN 12.2 g/dL (12.0-16.0); LYMPHOCYTES # (AUTO) 0.8 10^3/uL (1.5-3.5); LYMPHOCYTES % (AUTO) 9.1 %; MEAN CORPUSCULAR HEMOGLOBIN 29.5 pg (27.0-31.0); MEAN CORPUSCULAR HGB CONC 34.2 g/dL (32.0-36.0); MEAN CORPUSCULAR VOLUME 86.2 fL (81.0-99.0); MEAN PLATELET VOLUME 10.2 fL (7.9-10.8); MONOCYTES # (AUTO) 0.4 10^3/uL (0.0-1.0); MONOCYTES % (AUTO) 4.9 %; NEUTROPHILS # (AUTO) 7.1 10^3/uL (1.5-6.6); NEUTROPHILS % (AUTO) 83.5 %; PLT - PLATELET COUNT 268 10^3/uL (130-450); RED BLOOD COUNT 4.14 10^6/uL (4.20-5.40); RED CELL DISTRIBUTION WIDTH 13.9 % (12.0-15.0); WHITE BLOOD COUNT 8.6 x10^3/uL (4.8-10.8)
[2022-02-15 05:35] LABS: CORONAVIRUS 229E-RESP PCR NOT DETECTED; CORONAVIRUS HKU1-RESP PCR NOT DETECTED; CORONAVIRUS NL63-RESP PCR NOT DETECTED; CORONAVIRUS OC43-RESP PCR NOT DETECTED
[2022-02-15 05:36] LABS: ALBUMIN 4.2 g/dL (3.2-5.5); ALBUMIN/GLOBULIN RATIO 1.1 (1.0-2.2); BILIRUBIN,TOTAL 0.5 mg/dL (0.2-1.0); CALCIUM 9.1 mg/dL (8.5-10.3); CREATININE 0.7 mg/dL (0.4-1.0); POTASSIUM 3.5 mmol/L (3.5-5.0); TOTAL PROTEIN 8.1 g/dL (6.7-8.2)
[2022-02-15 05:37] LABS: B. PARAPERTUSSIS- RESP PCR PAN NOT DETECTED; B. PERTUSSIS- RESP PCR PANEL NOT DETECTED; C. PNEUMONIAE- RESP PCR PANEL NOT DETECTED; HUMAN METAPNEUMOVIRUS NOT DETECTED; INFLUENZA A- RESP PCR PANEL NOT DETECTED; INFLUENZA B - RESP PCR PANEL NOT DETECTED; M. PNEUMONIAE- RESP PCR PANEL NOT DETECTED; PARAINFLUENZA VIRUS 1 NOT DETECTED; PARAINFLUENZA VIRUS 2 NOT DETECTED; PARAINFLUENZA VIRUS 3 NOT DETECTED; PARAINFLUENZA VIRUS 4 NOT DETECTED; RHINOVIRUS/ENTEROVIRUS NOT DETECTED; RSV- RESP PCR PANEL NOT DETECTED; SARS-CoV-2 -RESP PCR PANEL DETECTED
[2022-02-15 06:45] VITALS: BP 113/69
--- NOTE | 2022-02-15 08:25 | XRAY Report ---
PROCEDURE: Chest 2 View X-Ray INDICATIONS: fever, cough TECHNIQUE: 2 view(s) of the chest. COMPARISON: None. FINDINGS: SUPPORT DEVICES: None. LUNGS/PLEURA: No focal consolidation, pleural effusion or space-occupying pneumothorax. MEDIASTINUM: The cardiomediastinal silhouette is within normal limits. BONES/SOFT TISSUES: No acute abnormality. IMPRESSION: 1.No acute cardiopulmonary abnormality. Concordant interpretation with preliminary report. Reviewed by: Benoit Villasenor MD on 02/15/2022 8:24 AM PDT Approved by: Benoit Villasenor MD on 02/15/2022 8:24 AM PDT Station ID: [id number]
== END 2022-02-15 06:43 | disposition home or self-care (01) ==
LOC: ED 04:22
DX: U07.1 COVID-19 (principal)
CPT/HCPCS: 36415; 71046; 80053; 81001; 83690; 85025; 87633; 99282; 99284; A9270; 81003; 87086

== ENCOUNTER 2022-03-04 20:32 | Emergency (ER) | payer OTHER ==
[2022-03-04] MEDS ORDERED: KETOROLAC 15 MG/ML VIAL IVP STA (21:10)
[2022-03-04] MEDS ORDERED: SODIUM CHLORIDE 0.9% 1,000 ML IV STA (21:10)
[2022-03-04] MEDS ORDERED: ONDANSETRON 4 MG/2 ML VIAL IVP STA (21:10)
--- NOTE | 2022-03-04 21:14 | ED Physician Documentation ---
PD HPI ABD PAIN - Stated complaint Stated Complaint: ABD & BACK PX/NAUSEA - Chief complaint Chief Complaint: Abd Pain - History obtained from History obtained from: Patient - History of Present Illness Timing - onset: Enter time (1599), Today Timing - duration: Hours Timing - details: Gradual onset, Still present Quality: Sharp, Pain Location: RLQ, Suprapubic Radiation: Lower back Improved by: Laying still Worsened by: Moving, Position, Palpation Associated symptoms: Nausea. No: Vomiting, Diarrhea, Constipation Similar symptoms before: Has not had sx before Recently seen: Emergency Dept (seen for DENI on 02-15-22), Other - Additional information Additional information: 36-year-old female presents today with back pain and pelvic pain that began about 1600 today the patient indicates that she took a handful of Tylenol and try to take a nap woke up feeling slightly better but any movement she has is causing severe pain to her abdomen and back. She is nauseous she has not had vomiting. She has not had these pains previously. She is at the end of her menses. She indicates that she was seen by her primary today just before all this started with a lump in her right breast with some expression through her nipple and this was cultured and she has been placed on antibiotic she has not started these antibiotics. Review of Systems Constitutional: denies: Fever Eyes: denies: Decreased vision Ears: denies: Ear pain Nose: denies: Congestion Throat: denies: Sore throat Cardiac: denies: Chest pain / pressure, Palpitations Respiratory: denies: Dyspnea, Cough GI: reports: Abdominal Pain, Nausea. denies: Vomiting, Constipation, Diarrhea : denies: Dysuria, Frequency Skin: reports: Other (lump in right breast with nipple discharge) Musculoskeletal: reports: Back pain. denies: Neck pain, Extremity pain PD PAST MEDICAL HISTORY - Past Medical History Cardiovascular: None Respiratory: None Neuro: None Endocrine/Autoimmune: None GI: None DAIRY CONSULTANT: None : None HEENT: Chronic vision loss Psych: Post traumatic stress disorder Musculoskeletal: None Derm: None - Past Surgical History Past Surgical History: No /DAIRY CONSULTANT: Dilation and currettage - Present Medications Home Medications: Ambulatory Orders Medication Instructions Recorded Confirmed oxyCODONE [Roxicodone] 5 mg PO Q4-6H PRN #20 tablet 02/15/22 - Allergies Allergies/Adverse Reactions: Allergies Allergy/AdvReac Type Severity Reaction Status Date / Time iron dextran complex Allergy breathing Verified 03/04/22 20:37 difficulty nickel Allergy Rash Verified 03/04/22 20:37 - Social History Does the pt smoke?: No Smoking Status: Never smoker Does the pt drink ETOH?: Yes Does the pt have substance abuse?: No - Immunizations Immunizations are current?: Yes - POLST Patient has POLST: No PD ED PE NORMAL - Vitals Vital signs reviewed: Yes (hypertensive ) - General General: Alert and oriented X 3, Well developed/nourished, Other (36-year-old female with toeing stockings tone and flattened affect appears to be in pain she is sitting still in a chair.) - HEENT HEENT: Atraumatic, PERRL, EOMI - Neck Neck: Supple, no meningeal sign, No bony TTP - Cardiac Cardiac: RRR, No murmur - Respiratory Respiratory: No respiratory distress, Clear bilaterally - Abdomen Abdomen: Normal bowel sounds, Soft, Non distended, No organomegaly, Other (Right lower quadrant tenderness is greater than left lower quadrant and suprapubic tenderness there is general tenderness to the abdomen guarding is in the right lower quadrant) - Back Back: No CVA TTP, No spinal TTP - Derm Derm: Normal color, Warm and dry, No rash - Extremities Extremities: No deformity, No edema - Neuro Neuro: Alert and oriented X 3, electric switch repairer 2-12 intact, No motor deficit, No sensory deficit, Normal speech Eye Opening: Spontaneous Motor: Obeys Commands Verbal: Oriented GCS Score: 15 - Psych Psych: Normal mood Results - Vitals Vitals: Vital Signs - 24 hr 03/04/22 03/04/22 20:38 21:47 Temperature 36.5 C 38.7 C H Heart Rate 100 Respiratory 22 Rate Blood Pressure 148/83 H O2 Saturation 100 Oxygen O2 Source Room air - Labs Labs: Laboratory Tests 03/04/22 03/04/22 03/04/22 21:20 21:20 23:19 WBC 19.0 H RBC 4.03 L Hgb 11.8 L Hct 34.2 L MCV 84.9 MCH 29.3 MCHC 34.5 RDW 13.3 Plt Count 411 MPV 9.7 Neut # (Auto) 17.2 H Lymph # (Auto) 0.8 L Ponce # (Auto) 0.7 Eos # (Auto) 0.1 Baso # (Auto) 0.1 Absolute Nucleated RBC 0.00 Nucleated RBC % 0.0 Sodium 137 Potassium 3.4 L Chloride 101 Carbon Dioxide 24 Anion Gap 12.0 BUN 13 Creatinine 0.7 Estimated GFR (MDRD) 95 Glucose 111 H Calcium 9.8 Total Bilirubin 0.5 AST 17 ALT 19 Alkaline Phosphatase 69 Total Protein 8.4 H Albumin 4.3 Globulin 4.1 Albumin/Globulin Ratio 1.0 Lipase 39 Urine Color YELLOW Urine Clarity CLEAR Urine pH 7.5 Ur Specific [place] 1.015 Urine Protein NEGATIVE Urine Glucose (UA) NEGATIVE Urine Ketones NEGATIVE Urine Occult Blood MODERATE H Urine Nitrite NEGATIVE Urine Bilirubin NEGATIVE Urine Urobilinogen 0.2 (NORMAL) Ur Leukocyte Esterase NEGATIVE Urine RBC 6-10 H Urine WBC 0-3 Ur Squamous Epith Cells FEW Squamous Urine Bacteria Rare Urine Mucus Few Strands Ur Microscopic Review INDICATED Urine Culture Comments NOT INDICATED Urine HCG, Qual NEGATIVE - Rads (name of study) CT ab/pel with Radiology: Prelim report reviewed (Impression: 1. No acute intra-abdominal abnormality. Specifically, no evidence of acute appendicitis.), EMP read indepedently, See rad report Procedures - IVC sono (time) 2109 Bedside IVC sono: IVC measures (cm) (1.24), Dehydration (est 1 liter deficit) PD MEDICAL DECISION MAKING - ED course Complexity details: reviewed old records, reviewed results, re-evaluated patient, considered differential, d/w patient ED course: 36-year-old female with acute onset of low back pain followed by pelvic pain that was excruciating has come into the emergency department for evaluation. She was seen earlier in the day by her primary care for a mass in her right breast which has been partially worked up with ultrasound and a mammogram. She today has developed some drainage from the mass in her breast as well as increased pain. These were not present prior previously. A prescription for antibiotic has been written for the patient and she has not been able to pick this up yet. She presents to the emergency department this evening with an elevated white blood cell count and a low-grade fever. She has had COVID recently and I doubt this is a recurrence this quickly. Today in the emergency department we were able to image her abdomen and pelvis with a CT without evidence of appendicitis or other abnormalities. In addition no evidence of torsion on pelvic ultrasound. The patient had improvement in her pain with use of Toradol and Dilaudid. We are providing a dose of Rocephin here in the emergency department for mastitis. Departure - Departure Disposition: 01 Home, Self Care Clinical Impression: Mastitis Back pain Qualifiers: Back pain location: low back pain Chronicity: acute Back pain laterality: unspecified Sciatica presence: without sciatica Qualified Code(s): M54.50 - Low back pain, unspecified Abdominal pain Qualifiers: Abdominal location: lower abdomen, unspecified Qualified Code(s): R10.30 - Lower abdominal pain, unspecified Condition: Stable Instructions: ED Abdominal Pain Female Non-Specific Abdominal Pain, ED Breast Infec Follow-Up: Claudia Mccullough MD [Primary Care Provider] - Comments: Casandra, today we did not find a specific reason for your low back and pelvis to be hurting so significantly. We did find to have a elevated white blood cell count and a low-grade fever and a source of infection in the right breast. We have given you a dose of Rocephin here this evening which is like having you in the hospital overnight. Start your antibiotic prescription tomorrow as previously planned.
[2022-03-04 21:34] LABS: BASOPHILS # (AUTO) 0.1 10^3/uL (0.0-0.1); BASOPHILS % (AUTO) 0.3 %; EOSINOPHILS # (AUTO) 0.1 10^3/uL (0.0-0.7); EOSINOPHILS % (AUTO) 0.7 %; HCT - HEMATOCRIT 34.2 % (37.0-47.0); HGB - HEMOGLOBIN 11.8 g/dL (12.0-16.0); LYMPHOCYTES # (AUTO) 0.8 10^3/uL (1.5-3.5); LYMPHOCYTES % (AUTO) 4.2 %; MEAN CORPUSCULAR HEMOGLOBIN 29.3 pg (27.0-31.0); MEAN CORPUSCULAR HGB CONC 34.5 g/dL (32.0-36.0); MEAN CORPUSCULAR VOLUME 84.9 fL (81.0-99.0); MEAN PLATELET VOLUME 9.7 fL (7.9-10.8); MONOCYTES # (AUTO) 0.7 10^3/uL (0.0-1.0); MONOCYTES % (AUTO) 3.6 %; NEUTROPHILS # (AUTO) 17.2 10^3/uL (1.5-6.6); NEUTROPHILS % (AUTO) 90.8 %; PLT - PLATELET COUNT 411 10^3/uL (130-450); RED BLOOD COUNT 4.03 10^6/uL (4.20-5.40); RED CELL DISTRIBUTION WIDTH 13.3 % (12.0-15.0)
[2022-03-04 21:47] LABS: ALBUMIN 4.3 g/dL (3.2-5.5); BILIRUBIN,TOTAL 0.5 mg/dL (0.2-1.0); CALCIUM 9.8 mg/dL (8.5-10.3); CREATININE 0.7 mg/dL (0.4-1.0); POTASSIUM 3.4 mmol/L (3.5-5.0); TOTAL PROTEIN 8.4 g/dL (6.7-8.2)
[2022-03-04] MEDS ORDERED: HYDROmorphone 1 MG/ML CARPUJECT IVP STA (22:36)
[2022-03-04 23:34] LABS: BILIRUBIN,URINE NEGATIVE (NEGATIVE); GLUCOSE, URINE (UA) NEGATIVE (NEGATIVE); KETONES,URINE (UA) NEGATIVE (NEGATIVE); LEUKOCYTE ESTERASE, URINE NEGATIVE (NEGATIVE); NITRITE,URINE NEGATIVE (NEGATIVE); OCCULT BLOOD,URINE MODERATE (NEGATIVE); PH,URINE 7.5 PH (5.0-7.5); PROTEIN,URINE NEGATIVE (NEGATIVE); UROBILINOGEN,URINE 0.2 (NORMAL) E.U./dL (NORMAL)
[2022-03-04] MEDS ORDERED: IOPAMIDOL-300 100 ML VIAL IVP ONE (23:36)
[2022-03-04 23:44] LABS: CLARITY,URINE CLEAR (CLEAR); HCG UR QUAL NEGATIVE
[2022-03-04 23:45] LABS: BACTERIA,URINE Rare /HPF (None Seen); MUCUS,URINE Few Strands; SQUAMOUS EPITHELIAL CELL,UR FEW Squamous (<= Few); WBC,URINE 0-3 /HPF (0-5)
--- NOTE | 2022-03-04 23:57 | CT Report ---
PROCEDURE: Abdomen/Pelvis W INDICATIONS: RLQ pain CONTRAST: IV CONTRAST: Isovue 300 ml: 100 PO CONTRAST: *NO PO CONTRAST TECHNIQUE: After the administration of intravenous contrast, 5 mm thick sections acquired from the diaphragms to the symphysis. 5 mm thick coronal and sagittal reformats were acquired. For radiation dose reducti on, the following was used: automated exposure control, adjustment of mA and/or kV according to cande ent size. COMPARISON: 07/31/2014. FINDINGS: Image quality: Excellent. Lung bases:There is mild dependent atelectasis. Heart: Heart is normal in size. ABDOMEN: Liver: No mass lesion. Gallbladder: Within normal limits without calcified gallstones. Biliary ducts: No biliary ductal dilatation. Pancreas: Unremarkable. Spleen: Normal in size. Adrenal Glands: No adrenal nodules. Kidneys and Ureters: No hydronephrosis.There is a small left renal cyst. Stomach and Bowel: Stomach, small bowel loops, and colon are normal in caliber and wall thickness. T he appendix is normal in appearance. There is colonic diverticulosis without acute diverticulitis. Peritoneum: No abnormal intraperitoneal fluid. No free air. Ventral Wall: No hernia. Abdominal Nodes: No retroperitoneal or mesenteric adenopathy by size criteria. Vessels: Aorta and inferior vena cava are normal in size. PELVIS: Pelvic Organs:The uterus and ovaries appear normal size limits for age. Bladder: Unremarkable. Pelvic Nodes: No enlarged lymph nodes. Miscellaneous: No inguinal hernias are seen. Bones: Visualized osseous structures demonstrate no suspicious focal lesions. IMPRESSION: 1. No acute intra-abdominal abnormality. Specifically, no evidence of acute appendicitis. Reviewed by: Tony Olivera MD on 03/04/2022 11:59 PM PDT Approved by: Toyn Olivera MD on 03/04/2022 11:59 PM PDT Station ID: [id number]
[2022-03-05] MEDS ORDERED: cefTRIAXone 1 GM in SODIUM CHLORIDE 0.9% MINIBAG 100 ML IV STA (00:22)
[2022-03-05] MEDS ORDERED: cefTRIAXone 1 GM VIAL ONE (00:40)
[2022-03-05] MEDS ORDERED: oxyCODONE/ACET 5/325 Prepack 4 PO STA (00:41)
[2022-03-05] MEDS ORDERED: ACETAMINOPHEN 325 MG TABLET PO STA (01:06)
[2022-03-05] MEDS ORDERED: oxyCODONE 5 MG TABLET PO STA (01:06)
[2022-03-05 01:33] VITALS: BP 138/82
--- NOTE | 2022-03-05 02:37 | Ultrasound Report ---
PROCEDURE: Pelvic w/Doppler Limited INDICATIONS: PELVIC PAIN ? Torsion TECHNIQUE: Real-time transabdominal scanning was performed of the pelvic organs, with image documentation. Dopp ler interrogation was performed of the ovaries bilaterally. COMPARISON: None. FINDINGS: Uterus: Uterus is anteverted and measures 10.4 x 4.7 x 6.1 cm. Endometrium is thickened and heteroge neous measuring up to 0.7 cm. Ovaries: The right ovary measures 3 x 2.2 x 3 cm with a volume of 10.5 mL the left ovary measures 3. 2 x 1.7 x 2.6 cm) 7.3 mm no adnexal masses. Normal appearing arterial and venous waveforms are demon strated within each ovary.] IMPRESSION: 1. Normal study without definite evidence of ovarian torsion. Reviewed by: Tony Olivera MD on 03/05/2022 2:35 AM PDT Approved by: Tony Olivera MD on 03/05/2022 2:35 AM PDT Station ID: [id number]
== END 2022-03-05 01:40 | disposition home or self-care (01) ==
LOC: ED 20:32
DX: N61.1 Abscess of the breast and nipple (principal); M54.50 Low back pain, unspecified; R10.2 Pelvic and perineal pain; R50.9 Fever, unspecified
CPT/HCPCS: 36415; 74177; 76856; 80053; 81001; 81025; 83690; 85025; 93976; 96365; 96375; 99284; A9270; J1170; Q9967; 81003; 87086